=== PATIENT | female | born 1940 | race Caucasian/White ===

== ENCOUNTER 2019-05-30 16:17 | Emergency (ER) | payer MEDICARE, BC ==
[2019-05-30] MEDS ORDERED: Ondansetron 4 MG Tab.DIS PO ONE (16:44)
--- NOTE | 2019-05-30 17:13 | EDM.PDOC ---
ED HPI GENERAL MEDICAL PROBLEM - General Chief Complaint: Head Injury Stated Complaint: HEAD INJURY/FALL Time Seen by Provider: 05/30/19 16:35 Source of Information: Reports: Patient, Family (son), RN Notes Reviewed History Limitations: Reports: No Limitations - History of Present Illness INITIAL COMMENTS - FREE TEXT/NARRATIVE: Patient is a 78-year-old female who presents to the ED for the evaluation of a head injury and fall. The patient notes that she walks with an elderly gentleman who is blind, near daily. She states that today they were walking about 6 blocks, and usually does so with her walker however she did not have her walker and was using this gentlemen's extra cane, she says it is a little bit taller than her normal walker/device. She states that she just felt like she could not get her steadiness, and she does notice a slight imbalance on a regular basis. She notes that she thought she felt a little bit weak, and then just fell onto the cement face first. Patient is not on any blood thinners, nor did she have any loss of consciousness. She does have quite a large hematoma to the right side of her forehead with moderate amount of bruising and a small abrasion as well. She is not complaining of any blurred vision or double vision, no vomiting or diarrhea but a little bit nauseous. She is not having pain anywhere else. She is complaining of a mild headache. Patient states she cannot take ibuprofen per Dr. Benoit, and she cannot take Tylenol either due to liver issues. Subsequently she did not take any sort of pain medication prior to arrival to the ER. Her primary care provider is Kareen Matta Right Face/Facial Pain Score (Numeric/FACES): 9 - Related Data Allergies Allergy/AdvReac Type Severity Reaction Status Date / Time No Known Allergies Allergy Verified 05/30/19 16:30 Home Meds: Home Meds Lisinopril/Hydrochlorothiazide [Lisinopril-HCTZ 10-12.5 MG] 1 tab PO DAILY 05/30 [History] Omeprazole 20 mg PO DAILY 05/30/19 [History] Ursodiol [Kim Forte] 2 cap PO DAILY 05/30/19 [History] allopurinoL [Zyloprim] 100 mg PO DAILY 05/30/19 [History] traMADol [Ultram] 50 mg PO Q6H PRN #12 tab 05/30/19 [Rx] Past Medical History Cardiovascular History: Reports: Hypertension Genitourinary History: Reports: Other (See Below) Other Genitourinary History: renal carcinoma- right; - Past Surgical History GI Surgical History: Reports: Other (See Below) Other GI Surgeries/Procedures: biliary cirrhosis Social & Family History - Tobacco Use Smoking Status *Q: Never Smoker - Caffeine Use Caffeine Use: Reports: Coffee, Soda, Tea - Recreational Drug Use Recreational Drug Use: No ED ROS GENERAL - Review of Systems Review Of Systems: See Below Constitutional: Denies: Fever, Chills, Malaise HEENT: Reports: Other (facial pain d/t fall). Denies: Nosebleed, Vision Change Respiratory: Denies: Shortness of Breath, Cough Cardiovascular: Denies: Chest Pain GI/Abdominal: Reports: Nausea. Denies: Abdominal Pain, Diarrhea, Vomiting : Denies: Dysuria, Frequency, Urgency Musculoskeletal: Denies: Neck Pain, Back Pain Skin: Reports: Bruising, Wound (skin abrasion to R forehead) Neurological: Reports: Headache (mild), Pre-Existing Deficit (mild balance issue prior to injury). Denies: Confusion, Dizziness, Numbness, Syncope, Tingling ED EXAM, HEAD INJURY - Physical Exam Exam: See Below Exam Limited By: No Limitations General Appearance: Alert, WD/WN, No Apparent Distress Head: Normocephalic, Facial Abrasions (To right forehead), Facial Ecchymosis ( To right forehead). No: Scalp Lacerations, Active Bleeding, Watts's Sign, Raccoon Eyes Nexus Criteria: No: Posterior, Midline Cervical Tenderness, Evidence of Intoxication, Altered Level of Consciousness, Focal Neurological Deficit, Painful Distraction Injuries Eyes: Bilateral Eye: EOMI, Normal Inspection, PERRL Ears: Normal External Exam, Normal Canal, Hearing Grossly Normal, Normal TMs Nose: Normal Inspection, Normal Mucousa, No Blood Throat/Mouth: Normal Inspection, Normal Lips, Normal Teeth, Normal Gums, Normal Oropharynx, Normal Voice, No Airway Compromise Neck: Non-Tender, Full Range of Motion, Normal Alignment, Normal Inspection Respiratory: No Respiratory Distress, Lungs Clear, Normal Breath Sounds, No Accessory Muscle Use, Chest Non-Tender Cardiovascular: Normal Peripheral Pulses, Regular Rate, Rhythm, No Murmur GI/Abdominal Exam: Normal Bowel Sounds, Soft, Non-Tender, No Distention, No Mass Extremities: Normal Inspection, Normal Range of Motion, Normal Capillary Refill 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 II-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 nml As Tested, No Motor/Sensory Deficits, Alert, Normal Mood/Affect, Oriented x 3 Skin: Normal Color, Warm/Dry - Yana Coma Score Best Eye Response (Yana): (4) Open Spontaneously Best Verbal Response ([place]): (5) Oriented Best Motor Response ([place]): (6) Obeys Commands [place] Total: 15 Course - Vital Signs Last Recorded V/S: Last Vital Signs Temp 97.6 F 05/30/19 16:25 Pulse 83 05/30/19 16:25 Resp 20 05/30/19 16:25 BP 161/89 H 05/30/19 16:25 Pulse Ox 97 05/30/19 16:25 - Orders/Labs/Meds Meds: Medications Discontinued Medications Generic Name Dose Route Start Last Admin Trade Name Freq PRN Reason Stop Dose Admin Ondansetron HCl 4 mg 05/30/19 16:44 05/30/19 16:50 Zofran Odt PO 05/30/19 16:45 4 mg ONETIME ONE Administration - Re-Assessments/Exams Free Text/Narrative Re-Assessment/Exam: 05/30/19 17:36 Patient presents to the ED for the evaluation of her head injury. I did order a head CT and a dose of Zofran as she was reporting mild nausea. The head CT demonstrates no sign of any sort of acute intracranial processes. There is mild senescent change, a very large scalp hematoma within the right frontal forehead region, and mild mucosal thickening within the left maxillary sinus, that appears to be pre-existing and chronic. Patient is still neurologically intact at this time, is not complaining of anything else and would like to go home, after the head CT report is okay I believe this is fine to do so. I did give her warning signs and what to look for on when to return, she verbalized understanding. She will be given some tramadol over the weekend for suspected pain that she might be having as she cannot take Tylenol or ibuprofen. Departure - Departure Time of Disposition: 17:37 Disposition: Home, Self-Care 01 Condition: Fair Clinical Impression: Skin abrasion Head injury due to trauma Qualifiers: Encounter type: initial encounter Qualified Code(s): S09.90XA - Unspecified injury of head, initial encounter Hematoma of frontal scalp Qualifiers: Encounter type: initial encounter Qualified Code(s): S00.03XA - Contusion of scalp, initial encounter - Discharge Information *PRESCRIPTION DRUG MONITORING PROGRAM REVIEWED*: Yes *COPY OF PRESCRIPTION DRUG MONITORING REPORT IN PATIENT SETH: No Prescriptions: traMADol [Ultram] 50 mg PO Q6H PRN #12 tab PRN Reason: Pain Instructions: Hematoma, [id number], Facial or Scalp Contusion, [id number] Referrals: Kareen Matta ORTHOTIC TECHNICIAN [Primary Care Provider] - Forms: ED Department Discharge Additional Instructions: You were evaluated in the ER today regarding your head injury. You were neurologically intact at the time of the visit. And a head CT demonstrated no acute bleeds or other intracranial processes. You do have a rather large hematoma to the right side of your face, and expect this to worsen over the next few days and then it should get better. Do not be surprised if your eye swells shut for a limited period of time while this is healing. You may use ice packs to the area to prevent further swelling. Please keep the abrasion clean and dry and use bacitracin topically to the area as needed. If you should develop any increasing blurred vision or double vision, headache that does not go away with tramadol, increasing nausea or vomiting, these would be causes for concern to return for reevaluation. Recommend you follow-up with your regular provider sometime next week for recheck of your injuries to make sure everything is getting better as expected. Please return to the ER at any time if your symptoms change or worsen. Sepsis Event Note - Evaluation Sepsis Screening Result: No Definite Risk - Focused Exam Vital Signs: Vital Signs Temp Pulse Resp BP Pulse Ox 05/30/19 16:25 97.6 F 83 20 161/89 H 97 Date Exam was Performed: 05/30/19 Time Exam was Performed: 17:36
--- NOTE | 2019-05-30 17:18 | CT ---
Head CT Technique: Multiple axial sections through the brain were obtained. Intravenous contrast was not utilized. Comparison: No prior intracranial imaging is available. Findings: Soft tissue hematoma is seen within the right frontal scalp. Mild mucosal thickening is seen with left maxillary sinus. Ventricles along with basal cisterns and sulci over the convexities are mildly prominent. Mild areas of diminished density are noted within the periventricular white matter most likely representing small vessel ischemic demyelination change. No evidence of intracranial hemorrhage. No midline shift or mass-effect is seen. Bone window settings were reviewed. Mild atherosclerotic calcification is seen within the carotid siphon. Mastoid sinuses are clear. No acute calvarial abnormality is appreciated. Impression: 1. Scalp hematoma within the right frontal region. 2. Mild mucosal thickening within the left maxillary sinus most likely pre-existing and chronic. 3. Mild senescent change as described above. No acute intracranial abnormality is appreciated. Diagnostic code #3 This report was dictated in [place] Standard Time
== END 2019-05-30 18:03 | disposition home or self-care (01) ==
LOC: JD.ED 16:17
DX: S00.03XA Contusion of scalp, initial encounter (principal); S00.83XA Contusion of other part of head, initial encounter; I10 Essential (primary) hypertension; Z79.899 Other long term (current) drug therapy; W19.XXXA Unspecified fall, initial encounter
CPT/HCPCS: 70450; 99283; A9270; 99284

== ENCOUNTER 2023-10-14 14:35 | Emergency (ER) | payer MEDICARE, BC ==
[2023-10-14 15:30] LABS: BASOPHILS PERCENT AUTO 0.6 % (0.0-1.0); EOSINOPHILS ABSOLUTE AUTO 0.2 K/mm3 (0.0-0.4); HEMATOCRIT 38.6 % (37.0-47.0); HEMOGLOBIN 12.3 gm/dl (12.0-16.0); IMMATURE GRAN ABSOLUTE AUTO 0.01 K/mm3 (0.00-0.05); IMMATURE GRAN PERCENT AUTO 0.2 % (0.0-0.4); LYMPHOCYTES ABSOLUTE AUTO 0.7 K/mm3 (1.0-4.8); LYMPHOCYTES PERCENT AUTO 14.7 % (24.0-44.0); MEAN CORPUSCULAR HEMOGLOBIN 30.8 pg (28.0-32.0); MEAN CORPUSCULAR HGB CONC 31.9 g/dl (32.0-36.0); MEAN CORPUSCULAR VOLUME 96.5 fl (83.0-99.0); MEAN PLATELET VOLUME 11.3 fl (9.4-12.3); MONOCYTES ABSOLUTE AUTO 0.5 K/mm3 (0.0-0.8); MONOCYTES PERCENT AUTO 10.1 % (0.0-8.0); NEUTROPHILS ABSOLUTE AUTO 3.3 K/mm3 (1.8-7.7); NEUTROPHILS PERCENT AUTO 70.4 % (41.0-71.0); PLATELET COUNT,PLT 142 K/mm3 (150-400); WHITE BLOOD CELL COUNT,WBC 4.75 K/mm3 (3.9-11.3)
[2023-10-14 15:55] LABS: LACTIC ACID 0.9 mmol/L (0.4-2.0)
[2023-10-14] MEDS: Piperacillin/Tazobactam 4.5 GM in Sodium Chloride 0.9% 100 ML IV ONE (15:55)
[2023-10-14] MEDS: Sodium Chloride 0.9% 10 ML Syringe FLUSH PRN (15:56)
[2023-10-14 16:01] LABS: A/G RATIO 0.7 (1-2); ALBUMIN 2.2 g/dl (3.4-5.0); ANION GAP 8.5 (5-15); BILIRUBIN TOTAL 0.6 mg/dL (0.2-1.0); CALCIUM 8.8 mg/dL (8.5-10.1); EST CRCL DRUG DOSING (CG) 31.15 mL/min; POTASSIUM,K 3.5 mEq/L (3.5-5.1); PROTEIN TOTAL,TP 5.4 g/dl (6.4-8.2)
[2023-10-14 16:10] LABS: CORONAVIRUS COVID-19 NAA NEGATIVE (NEGATIVE); INFLUENZA A NAA NEGATIVE (NEGATIVE); RESPIRATORY SYNCYTIAL VIR NAA NEGATIVE (NEGATIVE)
[2023-10-14] MEDS: Furosemide 40 MG/4 ML VIAL IVPUSH ONE (16:46)
== END 2023-10-14 17:45 ==
LOC: JD.ED 14:35
DX: L03.115 Cellulitis of right lower limb (principal); I82.401 Acute embolism and thrombosis of unspecified deep veins of right lower extremity; J90 Pleural effusion, not elsewhere classified; I11.0 Hypertensive heart disease with heart failure; I50.9 Heart failure, unspecified; Z79.899 Other long term (current) drug therapy
CPT/HCPCS: 0241U; 36415; 71045; 80053; 83605; 83880; 84484; 85025; 87040; 93005; 93970; 93971; 94762; 96365; 96375; 99285; J1940; J2543; J3490

== ENCOUNTER 2023-11-07 11:42 | Emergency (ER) | payer MEDICARE, BC ==
[2023-11-07] MEDS: Magnesium Citrate Solution 296 ML Bottle PO ONE (15:56)
== END 2023-11-07 15:55 | disposition home or self-care (01) ==
LOC: JD.ED 11:42
DX: K59.00 Constipation, unspecified (principal); I10 Essential (primary) hypertension; Z90.49 Acquired absence of other specified parts of digestive tract; Z87.891 Personal history of nicotine dependence; Z79.899 Other long term (current) drug therapy
CPT/HCPCS: 74018; 99283; A9270

== ENCOUNTER 2024-01-23 00:47 | Inpatient (IN) | payer MEDICARE, BC ==
[2024-01-23] MEDS: HYDROmorphone 0.5 MG/0.5 ML Syringe IVPUSH ONE (01:15)
[2024-01-23] MEDS: Metoclopramide 10 MG/2 ML SDV IVPUSH ONE (01:15)
[2024-01-23] MEDS: Dextrose 5%-Lactated Ringers 1,000 ML IV SCH (01:15)
[2024-01-23 01:19] LABS: BASOPHILS PERCENT AUTO 0.2 % (0.0-1.0); EOSINOPHILS PERCENT AUTO 0.4 % (0.0-6.0); HEMATOCRIT 29.3 % (37.0-47.0); IMMATURE GRAN ABSOLUTE AUTO 0.03 K/mm3 (0.00-0.05); IMMATURE GRAN PERCENT AUTO 0.6 % (0.0-0.4); LYMPHOCYTES ABSOLUTE AUTO 0.8 K/mm3 (1.0-4.8); LYMPHOCYTES PERCENT AUTO 15.7 % (24.0-44.0); MEAN CORPUSCULAR HEMOGLOBIN 34.1 pg (28.0-32.0); MEAN CORPUSCULAR HGB CONC 31.7 g/dl (32.0-36.0); MEAN CORPUSCULAR VOLUME 107.3 fl (83.0-99.0); MEAN PLATELET VOLUME 10.6 fl (9.4-12.3); MONOCYTES ABSOLUTE AUTO 0.6 K/mm3 (0.0-0.8); MONOCYTES PERCENT AUTO 10.9 % (0.0-8.0); NEUTROPHILS ABSOLUTE AUTO 3.6 K/mm3 (1.8-7.7); NEUTROPHILS PERCENT AUTO 72.2 % (41.0-71.0); PLATELET COUNT,PLT 191 K/mm3 (150-400); RED BLOOD CELL COUNT 2.73 M/mm3 (4.10-5.30); WHITE BLOOD CELL COUNT,WBC 5.04 K/mm3 (3.9-11.3)
[2024-01-23 01:20] LABS: HEMOGLOBIN 9.3 gm/dl (12.0-16.0)
[2024-01-23 01:26] LABS: LACTIC ACID 1.2 mmol/L (0.4-2.0)
[2024-01-23 01:27] LABS: A/G RATIO 0.5 (1-2); ALBUMIN 2.1 g/dl (3.4-5.0); ANION GAP 9.4 (5-15); BILIRUBIN TOTAL 0.5 mg/dL (0.2-1.0); C-REACTIVE PROTEIN 5.26 mg/dL (<0.30); CALCIUM 11.2 mg/dL (8.5-10.1); CREATININE 1.2 mg/dL (0.55-1.02); EST CRCL DRUG DOSING (CG) 25.88 mL/min; MAGNESIUM 1.8 mg/dL (1.8-2.4); POTASSIUM,K 3.4 mEq/L (3.5-5.1); PROTEIN TOTAL,TP 6.3 g/dl (6.4-8.2)
[2024-01-23 01:32] LABS: APPEARANCE,URINE CLEAR (Clear); BILIRUBIN,URINE NEGATIVE (Negative); COLOR,URINE YELLOW (Yellow); GLUCOSE,URINE NEGATIVE (Negative); KETONES,URINE NEGATIVE (Negative); LEUKOCYTE ESTERASE,URINE TRACE (Negative); NITRITE,URINE NEGATIVE (Negative); OCCULT BLOOD,URINE NEGATIVE (Negative); PROTEIN,URINE 1+ (Negative); UROBILINOGEN,URINE 0.2 (0.2-1.0)
[2024-01-23 02:01] LABS: RBC,URINE 0-5 /hpf (0-5); WBC,URINE 0-5 /hpf (0-5)
[2024-01-23 02:02] LABS: BACTERIA,URINE NOT SEEN /hpf (FEW); CALCIUM OXALATE CRYSTALS,URINE FEW; EPITHELIAL CELLS,URINE 0-5 /hpf (0-5); MUCUS,URINE RARE /hpf (FEW)
[2024-01-23] MEDS: Iopamidol 612 MG/ML 100 ML Bottle IVPUSH ONE (02:28)
[2024-01-23] MEDS: Magnesium Citrate Solution 296 ML Bottle PO ONE (03:39)
[2024-01-23] MEDS ORDERED: oxyCODONE 5 MG Tab PO PRN (09:05)
[2024-01-23] MEDS ORDERED: Sennosides/Docusate Sodium 50-8.6 MG Tab PO PRN (09:05)
[2024-01-23] MEDS ORDERED: Morphine 2 MG/ML SYRINGE IVPUSH PRN (09:05)
[2024-01-23] MEDS ORDERED: Naloxone 0.4 MG/ML SDV IVPUSH PRN (09:05)
[2024-01-23] MEDS ORDERED: Acetaminophen 325 MG Tab PO PRN (09:05)
[2024-01-23] MEDS ORDERED: Melatonin 3 MG Tab PO PRN (09:16)
[2024-01-23] MEDS: Potassium Chloride 20 MEQ Tab.ER PO ONE (09:16)
[2024-01-23] MEDS: Lactulose Soln 10 GM/15 ML 30 ML UD Cup PO SCH (09:17)
[2024-01-23] MEDS: Ondansetron 4 MG/2 ML SDV IV PRN (09:31)
[2024-01-23] MEDS: Enoxaparin 30 MG/0.3 ML Syringe SUBCUT SCH (09:32)
[2024-01-23 10:15] LABS: BASOPHILS PERCENT AUTO 0.3 % (0.0-1.0); EOSINOPHILS PERCENT AUTO 0.3 % (0.0-6.0); HEMATOCRIT 27.4 % (37.0-47.0); HEMOGLOBIN 8.6 gm/dl (12.0-16.0); IMMATURE GRAN ABSOLUTE AUTO 0.02 K/mm3 (0.00-0.05); IMMATURE GRAN PERCENT AUTO 0.5 % (0.0-0.4); LYMPHOCYTES ABSOLUTE AUTO 0.6 K/mm3 (1.0-4.8); LYMPHOCYTES PERCENT AUTO 15.3 % (24.0-44.0); MEAN CORPUSCULAR HEMOGLOBIN 33.3 pg (28.0-32.0); MEAN CORPUSCULAR HGB CONC 31.4 g/dl (32.0-36.0); MEAN CORPUSCULAR VOLUME 106.2 fl (83.0-99.0); MEAN PLATELET VOLUME 10.3 fl (9.4-12.3); MONOCYTES ABSOLUTE AUTO 0.4 K/mm3 (0.0-0.8); MONOCYTES PERCENT AUTO 11.2 % (0.0-8.0); NEUTROPHILS ABSOLUTE AUTO 2.7 K/mm3 (1.8-7.7); NEUTROPHILS PERCENT AUTO 72.4 % (41.0-71.0); PLATELET COUNT,PLT 178 K/mm3 (150-400); RED BLOOD CELL COUNT 2.58 M/mm3 (4.10-5.30); WHITE BLOOD CELL COUNT,WBC 3.66 K/mm3 (3.9-11.3)
[2024-01-23 10:34] LABS: INR 0.98; PROTHROMBIN TIME 10.4 SECONDS (9.7-12.0)
[2024-01-23 10:48] LABS: A/G RATIO 0.5 (1-2); ANION GAP 8.5 (5-15); BILIRUBIN TOTAL 0.6 mg/dL (0.2-1.0); BUN/CREATININE RATIO 19.1 (14-18); CALCIUM 10.8 mg/dL (8.5-10.1); CREATININE 1.1 mg/dL (0.55-1.02); EST CRCL DRUG DOSING (CG) 28.32 mL/min; MAGNESIUM 2.2 mg/dL (1.8-2.4); PHOSPHORUS 3.9 mg/dL (2.6-4.7); POTASSIUM,K 3.5 mEq/L (3.5-5.1); PROTEIN TOTAL,TP 6.2 g/dl (6.4-8.2); TSH 0.977 uIU/mL (0.358-3.74)
[2024-01-23 11:40] LABS: FOLIC ACID 28.9 ng/mL (8.6-58.9)
[2024-01-23] MEDS: Nystatin Susp 100,000 Unit/ML 5 ML UD Cup PO SCH (20:19)
[2024-01-24 04:43] LABS: BASOPHILS PERCENT AUTO 0.3 % (0.0-1.0); HEMATOCRIT 26.6 % (37.0-47.0); HEMOGLOBIN 8.2 gm/dl (12.0-16.0); IMMATURE GRAN ABSOLUTE AUTO 0.02 K/mm3 (0.00-0.05); IMMATURE GRAN PERCENT AUTO 0.5 % (0.0-0.4); LYMPHOCYTES ABSOLUTE AUTO 0.6 K/mm3 (1.0-4.8); LYMPHOCYTES PERCENT AUTO 14.6 % (24.0-44.0); MEAN CORPUSCULAR HEMOGLOBIN 33.9 pg (28.0-32.0); MEAN CORPUSCULAR HGB CONC 30.8 g/dl (32.0-36.0); MEAN CORPUSCULAR VOLUME 109.9 fl (83.0-99.0); MEAN PLATELET VOLUME 10.4 fl (9.4-12.3); MONOCYTES ABSOLUTE AUTO 0.4 K/mm3 (0.0-0.8); MONOCYTES PERCENT AUTO 11.3 % (0.0-8.0); NEUTROPHILS ABSOLUTE AUTO 2.8 K/mm3 (1.8-7.7); NEUTROPHILS PERCENT AUTO 72.3 % (41.0-71.0); PLATELET COUNT,PLT 165 K/mm3 (150-400); RED BLOOD CELL COUNT 2.42 M/mm3 (4.10-5.30); WHITE BLOOD CELL COUNT,WBC 3.91 K/mm3 (3.9-11.3)
[2024-01-24 05:01] LABS: INR 0.97; PROTHROMBIN TIME 10.3 SECONDS (9.7-12.0)
[2024-01-24 05:23] LABS: ANION GAP 4.5 (5-15); BUN/CREATININE RATIO 14.5 (14-18); CALCIUM 11.1 mg/dL (8.5-10.1); CREATININE 1.1 mg/dL (0.55-1.02); EST CRCL DRUG DOSING (CG) 28.32 mL/min; MAGNESIUM 2.4 mg/dL (1.8-2.4); PHOSPHORUS 3.6 mg/dL (2.6-4.7); POTASSIUM,K 4.5 mEq/L (3.5-5.1)
[2024-01-24] MEDS ORDERED: Allopurinol 100 MG Tab PO SCH (09:00)
[2024-01-24] MEDS ORDERED: Spironolactone 25 MG Tab PO SCH (09:00)
[2024-01-24] MEDS: Midodrine 5 MG Tab PO ONE (09:02)
[2024-01-24] MEDS: Apixaban 5 MG Tab PO SCH (20:01)
[2024-01-25 04:37] LABS: HEMATOCRIT 25.5 % (37.0-47.0); HEMOGLOBIN 7.9 gm/dl (12.0-16.0); MEAN CORPUSCULAR HEMOGLOBIN 33.5 pg (28.0-32.0); MEAN CORPUSCULAR VOLUME 108.1 fl (83.0-99.0); MEAN PLATELET VOLUME 10.4 fl (9.4-12.3); PLATELET COUNT,PLT 165 K/mm3 (150-400); RED BLOOD CELL COUNT 2.36 M/mm3 (4.10-5.30); WHITE BLOOD CELL COUNT,WBC 3.92 K/mm3 (3.9-11.3)
[2024-01-25] MEDS ORDERED: Allopurinol 100 MG Tab PO SCH (09:00)
[2024-01-25 19:43] LABS: INTACT PTH 38 pg/mL (15-65)
[2024-01-26] MEDS: Morphine 2 MG/ML SYRINGE IVPUSH ONE (05:11)
[2024-01-27 04:42] LABS: VITAMIN D 1,25 25.3 pg/mL (19.9-79.3)
[2024-01-29 04:46] LABS: PTH-RELATED PEPTIDE LC-MS/MS 2.6 pmol/L (0.0-3.4)
== END 2024-01-26 13:48 | disposition home or self-care (01) | DRG 180 ==
LOC: JD.ED 00:47 → JD.MS 06:51
PROVIDERS: ADMIT Student in an Organized Health Care Education/Training Program; ATTEND Student in an Organized Health Care Education/Training Program
PROC: 0W9B30Z Drainage of Left Pleural Cavity with Drainage Device, Percutaneous Approach (ICD-10-PCS; principal; 2024-01-24)
PROC: 0W9930Z Drainage of Right Pleural Cavity with Drainage Device, Percutaneous Approach (ICD-10-PCS; 2024-01-24)
DX: C34.92 Malignant neoplasm of unspecified part of left bronchus or lung (principal); J96.21 Acute and chronic respiratory failure with hypoxia; R64 Cachexia; E46 Unspecified protein-calorie malnutrition; J91.0 Malignant pleural effusion; C34.91 Malignant neoplasm of unspecified part of right bronchus or lung; K59.01 Slow transit constipation; E83.52 Hypercalcemia; H54.7 Unspecified visual loss; G43.909 Migraine, unspecified, not intractable, without status migrainosus; E87.6 Hypokalemia; D53.9 Nutritional anemia, unspecified; N18.30 Chronic kidney disease, stage 3 unspecified; I95.9 Hypotension, unspecified; E04.1 Nontoxic single thyroid nodule; I12.9 Hypertensive chronic kidney disease with stage 1 through stage 4 chronic kidney disease, or unspecified chronic kidney disease; E88.09 Other disorders of plasma-protein metabolism, not elsewhere classified; Z63.5 Disruption of family by separation and divorce; Z98.890 Other specified postprocedural states; Z79.01 Long term (current) use of anticoagulants; Z90.49 Acquired absence of other specified parts of digestive tract; Z90.710 Acquired absence of both cervix and uterus; Z68.25 Body mass index [BMI] 25.0-25.9, adult; Z87.891 Personal history of nicotine dependence; Z79.899 Other long term (current) drug therapy
CPT/HCPCS: 36415; 71260; 74177; 80053; 81001; 83605; 83735; 83880; 84484; 85025; 86140; 87086; 93005; 96361; 96374; 96375; 99285; A9270; J1171; J2765; J7121; Q9967; 71045; 71045-26; 71046; 71046-26; 80048; 82542; 82607; 82652; 82746; 83970; 84100; 84443; 85027; 85610; 93010; 94761; 97110-GP; 97116-GP; 97162-GP; 97530-GP; 99223; 99232; 99238; J1650; J2270; J2405

== ENCOUNTER 2024-01-27 14:00 | Inpatient (IN) | payer MEDICARE, BC ==
[2024-01-27] MEDS: Sodium Chloride 0.9% 10 ML Syringe FLUSH PRN (14:45)
[2024-01-27 14:56] LABS: BASOPHILS PERCENT AUTO 0.4 % (0.0-1.0); HEMATOCRIT 30.6 % (37.0-47.0); HEMOGLOBIN 9.4 gm/dl (12.0-16.0); IMMATURE GRAN ABSOLUTE AUTO 0.05 K/mm3 (0.00-0.05); IMMATURE GRAN PERCENT AUTO 0.7 % (0.0-0.4); LYMPHOCYTES ABSOLUTE AUTO 0.7 K/mm3 (1.0-4.8); LYMPHOCYTES PERCENT AUTO 10.6 % (24.0-44.0); MEAN CORPUSCULAR HEMOGLOBIN 33.7 pg (28.0-32.0); MEAN CORPUSCULAR HGB CONC 30.7 g/dl (32.0-36.0); MEAN CORPUSCULAR VOLUME 109.7 fl (83.0-99.0); MONOCYTES ABSOLUTE AUTO 0.7 K/mm3 (0.0-0.8); NEUTROPHILS ABSOLUTE AUTO 5.4 K/mm3 (1.8-7.7); NEUTROPHILS PERCENT AUTO 78.3 % (41.0-71.0); PLATELET COUNT,PLT 195 K/mm3 (150-400); RED BLOOD CELL COUNT 2.79 M/mm3 (4.10-5.30); WHITE BLOOD CELL COUNT,WBC 6.89 K/mm3 (3.9-11.3)
[2024-01-27 15:12] LABS: BICARBONATE,ARTERIAL 32.2 meq/L (22.0-26.0); O2 SATURATION ARTERIAL 97.2 % (96.0-97.0); PCO2 ARTERIAL 64.4 mmHg (35.0-45.0)
[2024-01-27 15:13] LABS: BASE EXCESS ARTERIAL 5.5 (-2-2.0)
[2024-01-27 15:22] LABS: A/G RATIO 0.4 (1-2); ANION GAP 9.9 (5-15); BILIRUBIN TOTAL 0.4 mg/dL (0.2-1.0); BUN/CREATININE RATIO 21.3 (14-18); CALCIUM 12.1 mg/dL (8.5-10.1); CREATININE 1.6 mg/dL (0.55-1.02); EST CRCL DRUG DOSING (CG) 19.47 mL/min; POTASSIUM,K 4.9 mEq/L (3.5-5.1); PROTEIN TOTAL,TP 6.6 g/dl (6.4-8.2)
[2024-01-27 15:35] LABS: C-REACTIVE PROTEIN 11.97 mg/dL (<0.30)
[2024-01-27 16:39] LABS: APPEARANCE,URINE TURBID (Clear); BILIRUBIN,URINE NEGATIVE (Negative); COLOR,URINE YELLOW (Yellow); GLUCOSE,URINE NEGATIVE (Negative); KETONES,URINE NEGATIVE (Negative); LEUKOCYTE ESTERASE,URINE 3+ (Negative); NITRITE,URINE POSITIVE (Negative); OCCULT BLOOD,URINE 2+ (Negative); PH,URINE 5.5 (5.0-8.0); PROTEIN,URINE 2+ (Negative); UROBILINOGEN,URINE 0.2 (0.2-1.0)
[2024-01-27 16:50] LABS: BACTERIA,URINE MANY /hpf (FEW); RBC,URINE 20-30 /hpf (0-5); WBC,URINE TOO NUMEROUS TO CNT /hpf (0-5)
[2024-01-27 16:51] LABS: MUCUS,URINE NOT SEEN /hpf (FEW)
[2024-01-27] MEDS: cefTRIAXone 1 GM in Sodium Chloride 0.9% 100 ML IV ONE (17:10)
[2024-01-27 17:30] LABS: INR 0.98; PROTHROMBIN TIME 10.4 SECONDS (9.7-12.0)
[2024-01-27] MEDS ORDERED: Sennosides/Docusate Sodium 50-8.6 MG Tab PO PRN (17:40)
[2024-01-27] MEDS ORDERED: Morphine 2 MG/ML SYRINGE IVPUSH PRN (17:40)
[2024-01-27] MEDS ORDERED: Naloxone 0.4 MG/ML SDV IVPUSH PRN (17:40)
[2024-01-27 17:41] LABS: LACTIC ACID 2.9 mmol/L (0.4-2.0)
[2024-01-27] MEDS: Famotidine 20 MG/2 ML SDV IVPUSH SCH (20:46)
[2024-01-27] MEDS: Melatonin 3 MG Tab PO PRN (20:46)
[2024-01-27] MEDS: Apixaban 5 MG Tab PO SCH (20:46)
[2024-01-28] MEDS: Ondansetron 4 MG/2 ML SDV IV PRN (04:36)
[2024-01-28 05:46] LABS: BASOPHILS PERCENT AUTO 0.4 % (0.0-1.0); EOSINOPHILS ABSOLUTE AUTO 0.1 K/mm3 (0.0-0.4); EOSINOPHILS PERCENT AUTO 1.5 % (0.0-6.0); HEMATOCRIT 29.9 % (37.0-47.0); HEMOGLOBIN 9.2 gm/dl (12.0-16.0); IMMATURE GRAN ABSOLUTE AUTO 0.05 K/mm3 (0.00-0.05); LYMPHOCYTES ABSOLUTE AUTO 0.6 K/mm3 (1.0-4.8); LYMPHOCYTES PERCENT AUTO 11.6 % (24.0-44.0); MEAN CORPUSCULAR HEMOGLOBIN 33.6 pg (28.0-32.0); MEAN CORPUSCULAR HGB CONC 30.8 g/dl (32.0-36.0); MEAN CORPUSCULAR VOLUME 109.1 fl (83.0-99.0); MONOCYTES ABSOLUTE AUTO 0.6 K/mm3 (0.0-0.8); MONOCYTES PERCENT AUTO 12.1 % (0.0-8.0); NEUTROPHILS ABSOLUTE AUTO 3.5 K/mm3 (1.8-7.7); NEUTROPHILS PERCENT AUTO 73.4 % (41.0-71.0); PLATELET COUNT,PLT 189 K/mm3 (150-400); RED BLOOD CELL COUNT 2.74 M/mm3 (4.10-5.30); WHITE BLOOD CELL COUNT,WBC 4.81 K/mm3 (3.9-11.3)
[2024-01-28 06:16] LABS: A/G RATIO 0.4 (1-2); ALBUMIN 1.9 g/dl (3.4-5.0); ANION GAP 8.8 (5-15); BILIRUBIN TOTAL 0.4 mg/dL (0.2-1.0); CALCIUM 12.2 mg/dL (8.5-10.1); CREATININE 1.5 mg/dL (0.55-1.02); EST CRCL DRUG DOSING (CG) 20.77 mL/min; MAGNESIUM 2.7 mg/dL (1.8-2.4); PHOSPHORUS 5.4 mg/dL (2.6-4.7); POTASSIUM,K 4.8 mEq/L (3.5-5.1); PROTEIN TOTAL,TP 6.4 g/dl (6.4-8.2)
[2024-01-28] MEDS: cefTRIAXone 1 GM in Sodium Chloride 0.9% 100 ML IV SCH (08:05)
[2024-01-28 10:31] LABS: BASE EXCESS ARTERIAL 4.5 (-2-2.0); BICARBONATE,ARTERIAL 32.4 meq/L (22.0-26.0); O2 SATURATION ARTERIAL 93.8 % (96.0-97.0); PCO2 ARTERIAL 74.1 mmHg (35.0-45.0)
[2024-01-28] MEDS: Clopidogrel 75 MG Tab PO SCH (10:35)
[2024-01-28] MEDS: Lidocaine 1% with EPINEPHrine 1:100,000 20 ML MDV INJECT ONE (11:54)
[2024-01-28] MEDS: Ursodiol 300 MG Cap PO SCH ×2 (12:19→20:05)
[2024-01-28] MEDS: guaiFENesin 600 MG Tab.ER PO SCH (12:19)
[2024-01-28] MEDS: Allopurinol 100 MG Tab PO ONE (12:19)
[2024-01-28] MEDS: oxyCODONE 5 MG Tab PO PRN (17:18)
[2024-01-28] MEDS: Famotidine 20 MG Tab PO SCH (20:04)
[2024-01-28] MEDS: Metoprolol Tartrate 25 MG Tab PO SCH (20:05)
[2024-01-29 04:37] LABS: BASOPHILS PERCENT AUTO 0.2 % (0.0-1.0); EOSINOPHILS ABSOLUTE AUTO 0.1 K/mm3 (0.0-0.4); EOSINOPHILS PERCENT AUTO 2.7 % (0.0-6.0); HEMATOCRIT 27.4 % (37.0-47.0); HEMOGLOBIN 8.7 gm/dl (12.0-16.0); IMMATURE GRAN ABSOLUTE AUTO 0.03 K/mm3 (0.00-0.05); IMMATURE GRAN PERCENT AUTO 0.6 % (0.0-0.4); LYMPHOCYTES ABSOLUTE AUTO 0.8 K/mm3 (1.0-4.8); LYMPHOCYTES PERCENT AUTO 16.4 % (24.0-44.0); MEAN CORPUSCULAR HGB CONC 31.8 g/dl (32.0-36.0); MEAN CORPUSCULAR VOLUME 103.8 fl (83.0-99.0); MEAN PLATELET VOLUME 11.5 fl (9.4-12.3); MONOCYTES ABSOLUTE AUTO 0.7 K/mm3 (0.0-0.8); MONOCYTES PERCENT AUTO 14.3 % (0.0-8.0); NEUTROPHILS ABSOLUTE AUTO 3.4 K/mm3 (1.8-7.7); NEUTROPHILS PERCENT AUTO 65.8 % (41.0-71.0); PLATELET COUNT,PLT 141 K/mm3 (150-400); RED BLOOD CELL COUNT 2.64 M/mm3 (4.10-5.30); WHITE BLOOD CELL COUNT,WBC 5.12 K/mm3 (3.9-11.3)
[2024-01-29 06:35] LABS: A/G RATIO 0.4 (1-2); ALBUMIN 1.6 g/dl (3.4-5.0); ANION GAP 6.8 (5-15); BILIRUBIN TOTAL 0.4 mg/dL (0.2-1.0); BUN/CREATININE RATIO 22.7 (14-18); CALCIUM 12.1 mg/dL (8.5-10.1); CREATININE 1.5 mg/dL (0.55-1.02); EST CRCL DRUG DOSING (CG) 20.77 mL/min; POTASSIUM,K 4.8 mEq/L (3.5-5.1); PROTEIN TOTAL,TP 5.7 g/dl (6.4-8.2)
[2024-01-29] MEDS: Allopurinol 100 MG Tab PO SCH (08:48)
[2024-01-29] MEDS: Acetaminophen 325 MG Tab PO PRN (08:50)
[2024-01-29] MEDS: Calcitonin (Salmon) 200 Units/ML 2 ML MDV SUBCUT ONE (09:45)
[2024-01-29 11:22] LABS: BASE EXCESS VENOUS 6.7 (-4.0-2.0); BICARBONATE,VENOUS 30.2 meq/L (22-26); O2 SATURATION VENOUS 96.6; PCO2 VENOUS 40.2 mmHg (41-51); PH,VENOUS 7.49 (7.30-7.40)
[2024-01-29] MEDS: Sodium Chloride 0.9% 1,000 ML IV SCH (13:12)
[2024-01-30 04:43] LABS: BASOPHILS PERCENT AUTO 0.2 % (0.0-1.0); EOSINOPHILS ABSOLUTE AUTO 0.1 K/mm3 (0.0-0.4); EOSINOPHILS PERCENT AUTO 1.7 % (0.0-6.0); HEMATOCRIT 29.6 % (37.0-47.0); HEMOGLOBIN 9.4 gm/dl (12.0-16.0); IMMATURE GRAN ABSOLUTE AUTO 0.02 K/mm3 (0.00-0.05); IMMATURE GRAN PERCENT AUTO 0.4 % (0.0-0.4); LYMPHOCYTES ABSOLUTE AUTO 0.9 K/mm3 (1.0-4.8); LYMPHOCYTES PERCENT AUTO 18.7 % (24.0-44.0); MEAN CORPUSCULAR HEMOGLOBIN 33.6 pg (28.0-32.0); MEAN CORPUSCULAR HGB CONC 31.8 g/dl (32.0-36.0); MEAN CORPUSCULAR VOLUME 105.7 fl (83.0-99.0); MEAN PLATELET VOLUME 11.2 fl (9.4-12.3); MONOCYTES ABSOLUTE AUTO 0.6 K/mm3 (0.0-0.8); MONOCYTES PERCENT AUTO 13.2 % (0.0-8.0); NEUTROPHILS PERCENT AUTO 65.8 % (41.0-71.0); PLATELET COUNT,PLT 143 K/mm3 (150-400); WHITE BLOOD CELL COUNT,WBC 4.61 K/mm3 (3.9-11.3)
[2024-01-30 05:13] LABS: A/G RATIO 0.4 (1-2); ALBUMIN 1.7 g/dl (3.4-5.0); ANION GAP 4.4 (5-15); BILIRUBIN TOTAL 0.4 mg/dL (0.2-1.0); BUN/CREATININE RATIO 22.3 (14-18); CALCIUM 10.2 mg/dL (8.5-10.1); CREATININE 1.3 mg/dL (0.55-1.02); EST CRCL DRUG DOSING (CG) 23.96 mL/min; POTASSIUM,K 4.4 mEq/L (3.5-5.1); PROTEIN TOTAL,TP 5.7 g/dl (6.4-8.2)
[2024-01-30] MEDS: Allopurinol 100 MG Tab PO SCH (08:11)
[2024-01-31 05:35] LABS: A/G RATIO 0.4 (1-2); ALBUMIN 1.5 g/dl (3.4-5.0); ANION GAP 7.7 (5-15); BILIRUBIN TOTAL 0.3 mg/dL (0.2-1.0); BUN/CREATININE RATIO 24.2 (14-18); CALCIUM 9.8 mg/dL (8.5-10.1); CREATININE 1.2 mg/dL (0.55-1.02); EST CRCL DRUG DOSING (CG) 25.96 mL/min; POTASSIUM,K 3.7 mEq/L (3.5-5.1); PROTEIN TOTAL,TP 5.3 g/dl (6.4-8.2)
[2024-01-31 05:38] LABS: BASOPHILS PERCENT AUTO 0.5 % (0.0-1.0); EOSINOPHILS ABSOLUTE AUTO 0.1 K/mm3 (0.0-0.4); EOSINOPHILS PERCENT AUTO 1.7 % (0.0-6.0); HEMATOCRIT 26.8 % (37.0-47.0); HEMOGLOBIN 8.3 gm/dl (12.0-16.0); IMMATURE GRAN ABSOLUTE AUTO 0.02 K/mm3 (0.00-0.05); IMMATURE GRAN PERCENT AUTO 0.5 % (0.0-0.4); LYMPHOCYTES ABSOLUTE AUTO 0.8 K/mm3 (1.0-4.8); LYMPHOCYTES PERCENT AUTO 18.8 % (24.0-44.0); MEAN CORPUSCULAR HEMOGLOBIN 32.7 pg (28.0-32.0); MEAN CORPUSCULAR VOLUME 105.5 fl (83.0-99.0); MEAN PLATELET VOLUME 10.8 fl (9.4-12.3); MONOCYTES ABSOLUTE AUTO 0.5 K/mm3 (0.0-0.8); MONOCYTES PERCENT AUTO 11.7 % (0.0-8.0); NEUTROPHILS ABSOLUTE AUTO 2.7 K/mm3 (1.8-7.7); NEUTROPHILS PERCENT AUTO 66.8 % (41.0-71.0); PLATELET COUNT,PLT 197 K/mm3 (150-400); RED BLOOD CELL COUNT 2.54 M/mm3 (4.10-5.30); WHITE BLOOD CELL COUNT,WBC 4.09 K/mm3 (3.9-11.3)
[2024-01-31] MEDS: Rosuvastatin 10 MG Tab PO SCH (12:24)
[2024-01-31] MEDS: Polyethylene Glycol 3350 Powder 17 GM Packet PO PRN (14:11)
[2024-01-31 15:03] LABS: BASE EXCESS VENOUS 6.8 (-4.0-2.0); BICARBONATE,VENOUS 31.8 meq/L (22-26); O2 SATURATION VENOUS 80.3; PCO2 VENOUS 50.7 mmHg (41-51); PH,VENOUS 7.41 (7.30-7.40)
[2024-01-31 16:42] LABS: IONIZED CA@PH7.4 1.55 mmol/L (1.09-1.30); IONIZED CALCIUM 1.47 mmol/L (1.09-1.30)
[2024-01-31] MEDS: Clopidogrel 75 MG Tab PO SCH (19:23)
[2024-02-01 04:27] LABS: HEMATOCRIT 25.8 % (37.0-47.0); MEAN CORPUSCULAR HEMOGLOBIN 32.9 pg (28.0-32.0); MEAN CORPUSCULAR VOLUME 106.2 fl (83.0-99.0); MEAN PLATELET VOLUME 10.4 fl (9.4-12.3); PLATELET COUNT,PLT 198 K/mm3 (150-400); RED BLOOD CELL COUNT 2.43 M/mm3 (4.10-5.30); WHITE BLOOD CELL COUNT,WBC 3.97 K/mm3 (3.9-11.3)
[2024-02-01 04:43] LABS: ANION GAP 7.8 (5-15); BUN/CREATININE RATIO 20.9 (14-18); CALCIUM 10.2 mg/dL (8.5-10.1); CREATININE 1.1 mg/dL (0.55-1.02); EST CRCL DRUG DOSING (CG) 28.32 mL/min; POTASSIUM,K 3.8 mEq/L (3.5-5.1)
[2024-02-01] MEDS: Benzocaine/Cetylpyridinium/Menthol Lozenge MUCMEM PRN (10:30)
[2024-02-01] MEDS: Diclofenac Sodium 1% Gel 100 GM Tube TOP SCH (17:08)
[2024-02-02 06:16] LABS: ANION GAP 4.5 (5-15); BUN/CREATININE RATIO 22.7 (14-18); CALCIUM 10.2 mg/dL (8.5-10.1); CREATININE 1.1 mg/dL (0.55-1.02); EST CRCL DRUG DOSING (CG) 28.32 mL/min; POTASSIUM,K 3.5 mEq/L (3.5-5.1)
[2024-02-02 08:21] LABS: ANION GAP 9.5 (5-15); BUN/CREATININE RATIO 21.7 (14-18); CALCIUM 10.2 mg/dL (8.5-10.1); CREATININE 1.2 mg/dL (0.55-1.02); EST CRCL DRUG DOSING (CG) 25.96 mL/min; POTASSIUM,K 3.5 mEq/L (3.5-5.1)
[2024-02-03] MEDS: Acetaminophen 325 MG Tab PO PRN (13:54)
[2024-02-07] MEDS: Ondansetron 4 MG Tab.DIS PO PRN (09:14)
== END 2024-02-07 13:02 | DRG 871 ==
LOC: JD.ED 14:00 → JD.MS 17:40
PROVIDERS: ADMIT Student in an Organized Health Care Education/Training Program; ATTEND Internal Medicine
PROC: 0W9B30Z Drainage of Left Pleural Cavity with Drainage Device, Percutaneous Approach (ICD-10-PCS; principal; 2024-01-28)
PROC: 3E03329 Introduction of Other Anti-infective into Peripheral Vein, Percutaneous Approach (ICD-10-PCS; 2024-01-28)
DX: A41.9 Sepsis, unspecified organism (principal); G93.41 Metabolic encephalopathy; J96.22 Acute and chronic respiratory failure with hypercapnia; J96.21 Acute and chronic respiratory failure with hypoxia; I21.A1 Myocardial infarction type 2; C34.90 Malignant neoplasm of unspecified part of unspecified bronchus or lung; E87.20 Acidosis, unspecified; I11.0 Hypertensive heart disease with heart failure; J93.9 Pneumothorax, unspecified; E44.0 Moderate protein-calorie malnutrition; I50.9 Heart failure, unspecified; N17.9 Acute kidney failure, unspecified; N39.0 Urinary tract infection, site not specified; I82.5Z1 Chronic embolism and thrombosis of unspecified deep veins of right distal lower extremity; I82.551 Chronic embolism and thrombosis of right peroneal vein; J91.0 Malignant pleural effusion; Z66 Do not resuscitate; R65.20 Severe sepsis without septic shock; I12.9 Hypertensive chronic kidney disease with stage 1 through stage 4 chronic kidney disease, or unspecified chronic kidney disease; H54.7 Unspecified visual loss; N18.32 Chronic kidney disease, stage 3b; G43.909 Migraine, unspecified, not intractable, without status migrainosus; E88.09 Other disorders of plasma-protein metabolism, not elsewhere classified; E83.52 Hypercalcemia; E86.0 Dehydration; D53.9 Nutritional anemia, unspecified; R74.01 Elevation of levels of liver transaminase levels; D69.6 Thrombocytopenia, unspecified; E04.1 Nontoxic single thyroid nodule; I25.10 Atherosclerotic heart disease of native coronary artery without angina pectoris; I99.8 Other disorder of circulatory system; Z74.09 Other reduced mobility; Z63.5 Disruption of family by separation and divorce; Z90.49 Acquired absence of other specified parts of digestive tract; Z99.81 Dependence on supplemental oxygen; Z96.659 Presence of unspecified artificial knee joint; Z90.710 Acquired absence of both cervix and uterus; C34.92 Malignant neoplasm of unspecified part of left bronchus or lung; Z98.890 Other specified postprocedural states; Z79.01 Long term (current) use of anticoagulants; Z79.899 Other long term (current) drug therapy
CPT/HCPCS: 36415; 36600; 71045; 80053; 81001; 82803; 83605; 83880; 84484 ×2; 85025; 85610; 86140; 87040; 87086; 93005; 94660; C1758; J0696; J3490 ×2; 51798; 80048; 82310; 82330; 83735; 84100; 85027; 93306; 93970; 93970-26; 94760; 94761; 96365; 97110-GP; 97112-GP; 97116-GP; 97161-GP; 97530-GP; 99223; 99231; 99232; 99233; 99239; 99282; 99285-25; A9270-GY; C1729; J0630; J2405; J7030; U0002

== ENCOUNTER 2024-06-30 09:56 | Emergency (ER) | payer MEDICARE, BC ==
[2024-06-30 10:59] LABS: APPEARANCE,URINE CLEAR (Clear); BILIRUBIN,URINE NEGATIVE (Negative); COLOR,URINE YELLOW (Yellow); GLUCOSE,URINE NEGATIVE (Negative); KETONES,URINE NEGATIVE (Negative); LEUKOCYTE ESTERASE,URINE TRACE (Negative); NITRITE,URINE NEGATIVE (Negative); OCCULT BLOOD,URINE 1+ (Negative); PROTEIN,URINE 2+ (Negative); UROBILINOGEN,URINE 0.2 (0.2-1.0)
[2024-06-30 11:16] LABS: EPITHELIAL CELLS,URINE 0-5 /hpf (0-5); MUCUS,URINE RARE /hpf (FEW); WAXY CASTS,URINE 0-5 /lpf (0-5); WBC,URINE 20-30 /hpf (0-5)
[2024-06-30 11:39] LABS: BACTERIA,URINE MANY /hpf (FEW)
[2024-06-30 11:52] LABS: BASOPHILS PERCENT AUTO 0.2 % (0.0-1.0); EOSINOPHILS ABSOLUTE AUTO 0.2 K/mm3 (0.0-0.4); EOSINOPHILS PERCENT AUTO 3.5 % (0.0-6.0); HEMATOCRIT 31.6 % (37.0-47.0); IMMATURE GRAN ABSOLUTE AUTO 0.02 K/mm3 (0.00-0.05); IMMATURE GRAN PERCENT AUTO 0.4 % (0.0-0.4); LYMPHOCYTES ABSOLUTE AUTO 0.8 K/mm3 (1.0-4.8); LYMPHOCYTES PERCENT AUTO 16.5 % (24.0-44.0); MEAN CORPUSCULAR HEMOGLOBIN 29.5 pg (28.0-32.0); MEAN CORPUSCULAR HGB CONC 31.6 g/dl (32.0-36.0); MEAN CORPUSCULAR VOLUME 93.2 fl (83.0-99.0); MONOCYTES ABSOLUTE AUTO 0.4 K/mm3 (0.0-0.8); MONOCYTES PERCENT AUTO 8.4 % (0.0-8.0); NEUTROPHILS ABSOLUTE AUTO 3.2 K/mm3 (1.8-7.7); PLATELET COUNT,PLT 158 K/mm3 (150-400); RED BLOOD CELL COUNT 3.39 M/mm3 (4.10-5.30); WHITE BLOOD CELL COUNT,WBC 4.55 K/mm3 (3.9-11.3)
[2024-06-30 12:13] LABS: A/G RATIO 0.6 (1-2); ALBUMIN 2.4 g/dl (3.4-5.0); ANION GAP 10.7 (5-15); BILIRUBIN TOTAL 0.4 mg/dL (0.2-1.0); BUN/CREATININE RATIO 13.8 (14-18); CALCIUM 10.4 mg/dL (8.5-10.1); CREATININE 1.3 mg/dL (0.55-1.02); EST CRCL DRUG DOSING (CG) 23.96 mL/min; POTASSIUM,K 3.7 mEq/L (3.5-5.1); PROTEIN TOTAL,TP 6.5 g/dl (6.4-8.2)
== END 2024-06-30 13:30 | disposition home or self-care (01) ==
LOC: JD.ED 09:56
DX: N39.0 Urinary tract infection, site not specified (principal); R05.1 Acute cough; I10 Essential (primary) hypertension; Z90.49 Acquired absence of other specified parts of digestive tract; Z90.710 Acquired absence of both cervix and uterus; Z79.01 Long term (current) use of anticoagulants; Z79.899 Other long term (current) drug therapy
CPT/HCPCS: 36415; 71046; 71046-26; 80053; 81001; 85025; 87077; 87086; 87428-QW; 99283; 99284

== ENCOUNTER 2024-11-23 16:23 | Emergency (ER) | payer MEDICARE, BC ==
[2024-11-23] MEDS: Diphtheria,Pertussis(Acell),Tetanus Vaccine 0.5 ML Syringe IM ONE (16:59)
== END 2024-11-23 17:09 | disposition home or self-care (01) ==
LOC: JD.ED 16:23
DX: S51.811A Laceration without foreign body of right forearm, initial encounter (principal); I10 Essential (primary) hypertension; Z23 Encounter for immunization; Z90.710 Acquired absence of both cervix and uterus; Z79.899 Other long term (current) drug therapy; Z79.01 Long term (current) use of anticoagulants; Z79.02 Long term (current) use of antithrombotics/antiplatelets; X58.XXXA Exposure to other specified factors, initial encounter
CPT/HCPCS: 90471; 90715; 99282; 99282-25

== ENCOUNTER 2024-12-04 10:42 | Emergency (ER) | payer MEDICARE, BC ==
[2024-12-04 12:04] LABS: BASOPHILS ABSOLUTE AUTO 0.0 K/mm3 (0.0-0.2); BASOPHILS PERCENT AUTO 0.3 % (0.0-1.0); EOSINOPHILS ABSOLUTE AUTO 0.1 K/mm3 (0.0-0.4); EOSINOPHILS PERCENT AUTO 0.9 % (0.0-6.0); IMMATURE GRAN ABSOLUTE AUTO 0.03 K/mm3 (0.00-0.05); IMMATURE GRAN PERCENT AUTO 0.4 % (0.0-0.4); LYMPHOCYTES ABSOLUTE AUTO 0.6 K/mm3 (1.0-4.8); LYMPHOCYTES PERCENT AUTO 7.2 % (24.0-44.0); MEAN PLATELET VOLUME 9.7 fl (9.4-12.3); MONOCYTES ABSOLUTE AUTO 0.6 K/mm3 (0.0-0.8); MONOCYTES PERCENT AUTO 7.1 % (0.0-8.0); NEUTROPHILS ABSOLUTE AUTO 6.5 K/mm3 (1.8-7.7); NEUTROPHILS PERCENT AUTO 84.1 % (41.0-71.0); NRBC ABSOLUTE 0.00 (0.00-0.02); NRBC PERCENT 0.0 % (0.0-0.2); PLATELET COUNT,PLT 192 K/mm3 (150-400); RED BLOOD CELL COUNT 3.49 M/mm3 (4.10-5.30); WHITE BLOOD CELL COUNT,WBC 7.77 K/mm3 (3.9-11.3)
[2024-12-04 12:31] LABS: A/G RATIO 0.5 (1-2); ALANINE AMINOTRANSFERASE,ALT 16 U/L (14-59); ASPARTATE AMNIOTRANSFERASE,AST 14 U/L (15-37); BILIRUBIN TOTAL 0.7 mg/dL (0.2-1.0); BLOOD UREA NITROGEN,BUN 26 mg/dL (7-18); CARBON DIOXIDE,CO2 29 mEq/L (21-32); CHLORIDE,CL 104 mEq/L (98-107); CREATININE 1.0 mg/dL (0.55-1.02); ESTIMATED GFR 56 mL/min (>60); GLUCOSE RANDOM 118 mg/dL (70-99); POTASSIUM,K 3.9 mEq/L (3.5-5.1); PROTEIN TOTAL,TP 6.4 g/dl (6.4-8.2); SODIUM,NA 139 mEq/L (136-145)
[2024-12-05 08:31] LABS: BASOPHILS ABSOLUTE AUTO 0.0 K/mm3 (0.0-0.2); BASOPHILS PERCENT AUTO 0.3 % (0.0-1.0); EOSINOPHILS ABSOLUTE AUTO 0.1 K/mm3 (0.0-0.4); EOSINOPHILS PERCENT AUTO 1.2 % (0.0-6.0); IMMATURE GRAN ABSOLUTE AUTO 0.03 K/mm3 (0.00-0.05); IMMATURE GRAN PERCENT AUTO 0.4 % (0.0-0.4); LYMPHOCYTES ABSOLUTE AUTO 0.6 K/mm3 (1.0-4.8); LYMPHOCYTES PERCENT AUTO 8.8 % (24.0-44.0); MEAN PLATELET VOLUME 10.1 fl (9.4-12.3); MONOCYTES ABSOLUTE AUTO 0.5 K/mm3 (0.0-0.8); MONOCYTES PERCENT AUTO 7.0 % (0.0-8.0); NEUTROPHILS ABSOLUTE AUTO 5.5 K/mm3 (1.8-7.7); NEUTROPHILS PERCENT AUTO 82.3 % (41.0-71.0); NRBC ABSOLUTE 0.00 (0.00-0.02); NRBC PERCENT 0.0 % (0.0-0.2); PLATELET COUNT,PLT 182 K/mm3 (150-400); RED BLOOD CELL COUNT 3.06 M/mm3 (4.10-5.30); WHITE BLOOD CELL COUNT,WBC 6.69 K/mm3 (3.9-11.3)
[2024-12-05 09:04] LABS: A/G RATIO 0.5 (1-2); ALANINE AMINOTRANSFERASE,ALT 14 U/L (14-59); ASPARTATE AMNIOTRANSFERASE,AST 14 U/L (15-37); BILIRUBIN TOTAL 0.7 mg/dL (0.2-1.0); BLOOD UREA NITROGEN,BUN 21 mg/dL (7-18); CARBON DIOXIDE,CO2 26 mEq/L (21-32); CHLORIDE,CL 106 mEq/L (98-107); CREATININE 0.8 mg/dL (0.55-1.02); ESTIMATED GFR 73 mL/min (>60); GLUCOSE RANDOM 88 mg/dL (70-99); POTASSIUM,K 3.6 mEq/L (3.5-5.1); PROTEIN TOTAL,TP 5.5 g/dl (6.4-8.2); SODIUM,NA 139 mEq/L (136-145)
== END 2024-12-05 14:15 | disposition home or self-care (01) ==
LOC: JD.ED 10:42
DX: K64.9 Unspecified hemorrhoids (principal); K62.5 Hemorrhage of anus and rectum; I10 Essential (primary) hypertension; Z79.899 Other long term (current) drug therapy; Z90.49 Acquired absence of other specified parts of digestive tract; Z90.710 Acquired absence of both cervix and uterus
CPT/HCPCS: 36415; 80053; 85014; 85018; 85025; 86850; 86900; 86901; 99283; A9270; J1642; J7030; 99284